=== PATIENT | male | born 1985 | race Caucasian/White ===

== ENCOUNTER 2024-05-20 11:11 | Emergency (ER) | payer OTHER ==
[~2024-05-20] VITALS: Ht 182.9 cm; Wt 102.0 kg
[2024-05-20 11:20] VITALS: BP 135/99; PULSE 130; RESP 18; TEMP 98; O2SAT 99
[2024-05-20] MEDS: TETANUS, DIPHTHERIA, PERTUSSIS VAC/PF 0.5ML (>10YR OLD) IM ONE (12:16)
[2024-05-20] MEDS: LIDOCAINE HCL/PF 1% 10 MG/ML 5ML VIAL INFIL ONE (12:21)
[2024-05-20] MEDS: BACITRACIN ZINC OINT UDPKT TOP ONE (12:21)
[2024-05-20] MEDS ORDERED: CEPH500C2 MT (12:31)
[2024-05-20] MEDS ORDERED: BO1 TP (12:33)
== END 2024-05-20 12:46 ==
LOC: ER 11:11
DX: T75.4XXA Electrocution, initial encounter (principal); X58.XXXA Exposure to other specified factors, initial encounter; Y93.89 Activity, other specified; Y92.89 Other specified places as the place of occurrence of the external cause; Y99.8 Other external cause status
CPT/HCPCS: 99284; J3490; Z7610

== ENCOUNTER 2025-06-13 11:35 | Emergency (ER) | payer MEDICAID ==
[~2025-06-13] VITALS: Ht 177.8 cm; Wt 84.0 kg
[~2025-06-13 11:35] MED LIST: BO1 TP; CEPH500C2 MT
[2025-06-13] MEDS: DIAZEPAM 5 MG/ML 2ML SYR IM ONE (12:03)
[2025-06-13] MEDS: HALOPERIDOL LACTATE 5MG/ML VIAL IM ONE (12:03)
[2025-06-13 12:09] LABS: CLARITY URINE CLEAR (CLEAR); COLOR URINE YELLOW (YELLOW); GLUCOSE URINE NEGATIVE (NEGATIVE); KETONES URINE 1+ (NEGATIVE); LEUKOCYTE ESTERASE URINE NEGATIVE (NEGATIVE); NITRITE URINE NEGATIVE (NEGATIVE); OCCULT BLOOD URINE NEGATIVE (NEGATIVE); PH URINE 7.5 (4.5-8.0); PROTEIN URINE NEGATIVE (NEGATIVE); SPECIFIC GRAVITY URINE 1.013 (1.005-1.030); UROBILINOGEN URINE 1.0 E.U./dL (0.2-1.0)
[2025-06-13 12:26] LABS: BASOPHILS % 1.5 % (0.0-2.0); EOSINOPHILS % 2.1 % (0.0-5.0); HEMATOCRIT. 42.7 % (42.0-52.0); HEMOGLOBIN. 14.2 g/dL (14.0-18.0); LYMPHOCYTES % 28.7 % (20.0-50.0); MEAN PLATELET VOLUME 7.5 fl (7.4-10.4); MONOCYTES % 9.0 % (2.0-8.0); NEUTROPHILS % 58.7 % (40.0-76.0); PLATELET 288 x1000/uL (130-400); RED BLOOD CELL COUNT 5.13 mill/uL (4.7-6.1); RED CELL DISTRIBUTION WIDTH 14.5 % (11.6-14.6)
[2025-06-13 12:31] LABS: *AMPHETAMINES SCREEN URINE NEGATIVE (NEGATIVE)
[2025-06-13 12:32] LABS: *BARBITURATES SCREEN URINE NEGATIVE (NEGATIVE); *BENZODIAZEPINES SCREEN URINE NEGATIVE (NEGATIVE); *COCAINE SCREEN URINE NEGATIVE (NEGATIVE); CANNABINOID URINE SCREEN NEGATIVE (NEGATIVE); ECSTASY MDMA SCREEN URINE NEGATIVE (NEGATIVE); METHADONE URINE SCREEN NEGATIVE (NEGATIVE); OPIATES URINE SCREEN NEGATIVE (NEGATIVE); PHENCYCLIDINE URINE SCREEN NEGATIVE (NEGATIVE)
[2025-06-13 12:41] LABS: CREATININE 1.0 mg/dL (0.6-1.3); UREA NITROGEN BLOOD 9 mg/dL (9-23)
[2025-06-13] MEDS: OLANZAPINE 10 MG/VIAL IM ONE (13:17)
[2025-06-13] MEDS: DIPHENHYDRAMINE 50MG/ML VIAL IM ONE (13:17)
[2025-06-13 13:45] VITALS: O2SAT 99
[2025-06-13 15:31] VITALS: BP 127/85; PULSE 96; RESP 16; TEMP 36.7; O2SAT 98
== END 2025-06-13 15:46 ==
LOC: ER 11:35
DX: R45.851 Suicidal ideations (principal); F20.9 Schizophrenia, unspecified; Z20.822 Contact with and (suspected) exposure to COVID-19; Z79.899 Other long term (current) drug therapy
CPT/HCPCS: 80305; 80048; 81003; 80307; 80329; 80320; 85025; 36415; 71045; 96372; 99291; 87426; J3490; J3360; J1200; J1630; G0480